=== PATIENT | male | born 2000 | race Caucasian/White ===

== ENCOUNTER 2021-09-17 09:33 | Inpatient (IN) | payer OTHER, SELFPAY ==
[2021-09-17] MEDS ORDERED: Ondansetron PF 4 MG/2 ML Vial ONE ×2 (09:57→15:16)
[2021-09-17] MEDS ORDERED: Morphine 4 MG/ML VIAL ONE ×4 (09:57→13:09)
[2021-09-17 10:16] LABS: #Eosinphils 0.2 thou/uL (0.0-0.7); #Lymphocytes 3.1 thou/uL (1.20-3.40); #Monocytes 0.8 thou/uL (0.11-0.59); %Basophils 0.3 % (0.0-1.0); %Eosinophils 1.3 % (0.0-10.0); %Lymphocytes 25.5 % (21.0-51.0); %Monocytes 6.9 % (0.0-10.0); Hemoglobin 14.8 g/dL (14.0-18.0); Mean Corpuscular HGB CONC 33.1 g/dL (32.0-36.0); Mean Corpuscular Hemoglobin 31.1 pg (27.0-31.0); Mean Corpuscular Volume 93.9 fL (78.0-98.0); Mean Platelet Volume 6.8 fL (7.4-10.4); Platelet Count 199 thou/uL (130-400); RBC Distribution Width 12.6 % (11.5-14.5); Red Blood Cell (RBC) Count 4.75 mill/uL (4.70-6.10); White Blood Cell (WBC) Count 12.1 thou/uL (4.8-10.8)
[2021-09-17 10:35] LABS: ALT (SGPT) 23 U/L (8-55); AST (SGOT) 17 U/L (5-34); Albumin 4.1 g/dL (3.5-5.0); Alkaline Phosphatase 71 U/L (40-110); Anion Gap 13 mmol/L (10-20); BUN (Urea Nitrogen) 15 mg/dL (8.9-20.6); Bilirubin, Total 0.5 mg/dL (0.2-1.2); Calc. Creatinine Clearance 0 mL/min (70-130); Calcium 8.6 mg/dL (7.8-10.44); Carbon Dioxide 23 mmol/L (22-29); Chloride 106 mmol/L (98-107); Globulin 2.1 g/dL (2.4-3.5); Glucose 110 mg/dL (70-105); Potassium 3.9 mmol/L (3.5-5.1); Protein, Total 6.2 g/dL (6.0-8.3); Sodium 138 mmol/L (136-145)
[2021-09-17] MEDS ORDERED: Iopamidol-370 76% 500 ML 1 ML ONE (10:55)
[2021-09-17] MEDS ORDERED: CEFAZOLIN 2 GM VIAL ONE (11:38)
[2021-09-17] MEDS ORDERED: Dextrose 5% in Water 1,000 ML IV PRN (12:20)
[2021-09-17] MEDS ORDERED: Dextrose 50% Abboject 50 ML SYRINGE SLOW IVP PRN (12:20)
[2021-09-17] MEDS ORDERED: Morphine 2 MG/ML VIAL SLOW IVP PRN (12:20)
[2021-09-17] MEDS ORDERED: Ondansetron ODT 4 MG TAB PO PRN (12:20)
[2021-09-17] MEDS ORDERED: Ondansetron PF 4 MG/2 ML Vial IVP PRN (12:20)
[2021-09-17] MEDS ORDERED: Morphine 4 MG/ML VIAL SLOW IVP PRN (12:20)
[2021-09-17] MEDS ORDERED: traMADol HCl 50 MG TAB PO PRN (12:24)
[2021-09-17] MEDS ORDERED: Cyclobenzaprine 10 MG TAB PO PRN (12:24)
[2021-09-17] MEDS ORDERED: Sodium Chloride 0.9% 1,000 ML IV SCH (12:30)
[2021-09-17] MEDS ORDERED: fentaNYL Citrate/PF 100 MCG/2 ML SYRINGE ONE (14:58)
[2021-09-17] MEDS ORDERED: CEFAZOLIN 1 GM VIAL ONE (15:05)
[2021-09-17] MEDS ORDERED: Sodium Chloride 0.9% 100 ML ONE (15:06)
[2021-09-17] MEDS ORDERED: PROPOFOL 200 MG/20 ML VIAL ONE (15:16)
[2021-09-17] MEDS ORDERED: Dexamethasone 20 MG/5 ML VIAL ONE (15:16)
[2021-09-17] MEDS ORDERED: Lidocaine 1% PF 5 ML VIAL ONE (15:16)
[2021-09-17] MEDS ORDERED: Neomycin-Polymyxin 1 ML AMP ONE (15:39)
[2021-09-17] MEDS ORDERED: EPINEPHrine 1 MG/ML AMP ONE (15:42)
[2021-09-17] MEDS ORDERED: Bupivacaine PF 0.5% 30 ML VIAL ONE (15:42)
[2021-09-17] MEDS ORDERED: HYDROmorphone 2 MG/ML VIAL SLOW IVP PRN (16:02)
[2021-09-17] MEDS ORDERED: Promethazine HCl 25 MG/ML VIAL IM PRN (16:02)
[2021-09-17] MEDS ORDERED: Ondansetron HCl/PF 4 MG/2 ML Vial IVP PRN (16:02)
[2021-09-17] MEDS ORDERED: Promethazine HCl 25 MG/ML VIAL IVPB PRN (16:02)
[2021-09-17] MEDS ORDERED: Bacitracin Zinc Ointment 30 gm TUBE ONE (16:03)
[2021-09-17] MEDS ORDERED: Promethazine HCl 25 MG/ML VIAL ONE ×2 (16:52→16:55)
[2021-09-17] MEDS ORDERED: Meperidine HCl/PF 25 MG/ML VIAL ONE (16:59)
[2021-09-17] MEDS: Ketorolac Tromethamine 30 MG/ML VIAL IVP SCH ×3 (17:25→23:57)
[2021-09-17] MEDS: Acetaminophen 500 MG TAB PO SCH ×2 (17:25→20:58)
[2021-09-17] MEDS: traMADol HCl 50 MG TAB PO SCH ×2 (18:06→23:57)
[2021-09-17 18:17] VITALS: BMI 25.7
[2021-09-17] MEDS: Famotidine/PF 20 mg/2ml Vial SLOW IVP SCH (20:58)
[2021-09-18] MEDS: Acetaminophen 500 MG TAB PO SCH ×3 (03:48→15:15)
[2021-09-18] MEDS: traMADol HCl 50 MG TAB PO SCH ×3 (05:53→12:16)
[2021-09-18] MEDS: Ketorolac Tromethamine 30 MG/ML VIAL IVP SCH ×2 (05:54→12:17)
[2021-09-18 06:16] LABS: #Lymphocytes 1.5 thou/uL (1.20-3.40); #Monocytes 0.8 thou/uL (0.11-0.59); #Neutrophils 13.6 thou/uL (1.40-6.50); %Basophils 0.1 % (0.0-1.0); %Eosinophils 0.1 % (0.0-10.0); %Lymphocytes 9.3 % (21.0-51.0); %Monocytes 4.8 % (0.0-10.0); %Neutrophils 85.6 % (42.0-75.0); Hemoglobin 14.4 g/dL (14.0-18.0); Mean Corpuscular HGB CONC 32.2 g/dL (32.0-36.0); Mean Corpuscular Hemoglobin 30.3 pg (27.0-31.0); Mean Corpuscular Volume 94.1 fL (78.0-98.0); Mean Platelet Volume 7.1 fL (7.4-10.4); Platelet Count 201 thou/uL (130-400); RBC Distribution Width 12.6 % (11.5-14.5); Red Blood Cell (RBC) Count 4.75 mill/uL (4.70-6.10); White Blood Cell (WBC) Count 15.9 thou/uL (4.8-10.8)
[2021-09-18 06:31] LABS: Phosphorus 3.9 mg/dL (2.3-4.7)
[2021-09-18 06:33] LABS: Anion Gap 13 mmol/L (10-20); BUN (Urea Nitrogen) 11 mg/dL (8.9-20.6); Calc. Creatinine Clearance 185 mL/min (70-130); Calcium 9.1 mg/dL (7.8-10.44); Carbon Dioxide 20 mmol/L (22-29); Chloride 109 mmol/L (98-107); Glucose 121 mg/dL (70-105); Potassium 4.4 mmol/L (3.5-5.1); Sodium 138 mmol/L (136-145)
[2021-09-18] MEDS: Famotidine/PF 20 mg/2ml Vial SLOW IVP SCH (09:49)
[2021-09-18 14:34] VITALS: TEMP 98.7
[2021-09-18 16:19] VITALS: BP 130/68
== END 2021-09-18 17:39 | disposition home or self-care (01) | DRG 580 ==
LOC: ERS 09:33 → SURG B 12:20
PROVIDERS: ADMIT Surgery; ATTEND Surgery
PROC: 0KQK0ZZ Repair Right Abdomen Muscle, Open Approach (ICD-10-PCS; principal; 2021-09-18)
PROC: 0VQ50ZZ Repair Scrotum, Open Approach (ICD-10-PCS; 2021-09-18)
DX: S31.113A Laceration without foreign body of abdominal wall, right lower quadrant without penetration into peritoneal cavity, initial encounter (principal); T79.7XXA Traumatic subcutaneous emphysema, initial encounter; S31.31XA Laceration without foreign body of scrotum and testes, initial encounter; F17.210 Nicotine dependence, cigarettes, uncomplicated; W11.XXXA Fall on and from ladder, initial encounter; Y93.H3 Activity, building and construction; Y92.89 Other specified places as the place of occurrence of the external cause; Y99.0 Civilian activity done for income or pay; Z87.442 Personal history of urinary calculi
CPT/HCPCS: 36415; 74177; 76870; 80048; 80053; 83735; 84100; 85025; 93976; 96365; 96375; 96376; G0390; J0171; J0690; J1100; J1885; J2175; J2270; J2405; J2550; J2704; J3490; J7050; Q9967; S0020; S0028